=== PATIENT | male | born 1995 | race Hispanic/Latino ===

== ENCOUNTER 2021-10-06 14:44 | Emergency (ER) | payer OTHER ==
[~2021-10-06] VITALS: Ht 142.2 cm; Wt 72.6 kg
[~2021-10-06 14:44] MED LIST: CLEOCIN 60600 MG/50 IV; TOPIRAMATE100 MG PO; TOPIRAMATE200 MG PO
== END 2021-10-06 17:48 | disposition home or self-care (01) ==
LOC: ER 15:35
DX: S00.83XA Contusion of other part of head, initial encounter (principal); M25.512 Pain in left shoulder; W10.8XXA Fall (on) (from) other stairs and steps, initial encounter; Y93.01 Activity, walking, marching and hiking; F79 Unspecified intellectual disabilities
CPT/HCPCS: 99283